=== PATIENT | female | born 1945 | race Caucasian/White ===

== ENCOUNTER 2018-08-28 14:19 | Inpatient (IN) | payer OTHER ==
[2018-08-28] VITALS (24 sets, daily range): BP systolic 102–211; BP diastolic 27–90
[~2018-08-28] VITALS: Ht 154.9 cm; Wt 69.6 kg
--- NOTE | ~2018-08-28 | HC ---
[facility] [place] [address] CONSULTATION Name: EBONI TARIQ Room #: 240-P ADM IN M.R.#: [id number] Admission: 08/28/18 Attend Phys: Vickey Montoya MD Discharge: Date of : 41 Report #: [id number] THIS REPORT FOR: //name// CC: Lu Montoya DATE OF SERVICE: 08/29/2018 INDICATION: Bradycardia and dyspnea. HISTORY OF PRESENT ILLNESS: This is a 73-year-old female transferred from [facility] for complaints of dyspnea and bradycardia. She resides in a longterm, is accompanied by her caregiver. Normally, she walks with a staff member for 20 minutes on a regular basis. Recently, she had to stop alf into her walk secondary to dyspnea and diaphoresis. Yesterday, she was out cleaning with other members. She was witnessed to be bradycardic and pale. They checked her blood pressure, which was elevated, but the heart rate was within normal limits. She was sent back to her home and she was still symptomatic. A repeat vitals revealed a low blood pressure and low heart rate. She was taken to the ER at [facility]. The EKG revealed sinus bradycardia with a heart rate of 37 beats per minute. She was subsequently transferred to [facility] for further evaluation. The patient denies any history of chest pains, fevers. PAST MEDICAL HISTORY: Mild mental retardation, schizoaffective disorder, hypertension, hypercholesterolemia, GERD, hypothyroidism, resides in a chcf since 1995. MEDICATIONS: Metoprolol 25 mg twice a day, lisinopril 20 mg daily, lovastatin. See MAR for full details. ALLERGIES: None. SOCIAL HISTORY: Denies tobacco use. FAMILY HISTORY: Unobtainable. PHYSICAL EXAMINATION: VITAL SIGNS: Blood pressure is 130/70, heart rate is 110 beats per minute. GENERAL APPEARANCE: An elderly appearing female, in no acute distress. HEENT: Atraumatic. Pupils equal and reactive to light. Oral mucosa moist. NECK: Supple. LUNGS: Clear to auscultation. CARDIAC: Regular rate and rhythm, S1, S2 positive. ABDOMEN: Soft, nontender. EXTREMITIES: No cyanosis, trace edema. [facility] [address] [place] [address] CONSULTATION Name: EBONI TARIQ Room #: [address] [place] [address] IN [facility].#: [id number] Admission: 08/28/18 Attend Phys: Vickey Montoya MD Discharge: Date of : 43 Report #: [id number] DIAGNOSTIC DATA: ECG from [place] reveals sinus bradycardia, right bundle branch block, left anterior hemiblock. LABORATORY VALUES: Sodium is 133, creatinine is 0.6. Troponin 0.12. TSH is 0.081. ASSESSMENT AND PLAN: 1. Bradycardia, unclear what the etiology is. It seems that she has been experiencing dyspnea and diaphoresis with mild levels of physical exertion. She is unable to voice her symptoms. The episode of bradycardia may have been related to a vasovagal event. Another consideration is the beta anna marie effect as well. However, she has been on this medication for quite some time. The plan is to hold the beta anna marie for now. 2. Dyspnea on exertion/diaphoresis. She will need a cardiac evaluation including echocardiogram and stress testing. 3. Thyroid disease. The TSH level is low, consistent with a hyperthyroid state. This would not account for the bradycardic episode. May need resumption of the beta anna marie. We will need to lower the dose of her thyroid supplement. 4. Hypertension. The blood pressure is stable, continue with ELIZABETH inhibitor. 5. Hypercholesterolemia, continue with statin therapy. <ELECTRONICALLY SIGNED> By: Reji Le MD 08/29/18 1518 0837 1211 Reji Le MD /nt
--- NOTE | ~2018-08-28 | 2DMMODE ---
[facility] [address] [place] [address] 2 D/M-MODE ECHOCARDIOGRAM Name: EBONI TARIQ Room #: 211-P ADM IN .R.#: [id number] Admission: 08/28/18 Attend Phys: Vickey Montoya MD Discharge: Date of : 41 Date of Service: 08/30/18 0955 Report #: [id number] THIS REPORT FOR: //name// APPROVED REPORT Study performed: 08/30/2018 08:21:54 EXAM: Comprehensive 2D, Doppler, and color-flow Echocardiogram Patient Location: In-Patient Room #: 211 Status: routine BSA: 1.69 HR: 73 bpm BP: 162/97 mmHg Other Information Study Quality: Adequate Indications Bradycardia Hypertension/HDD 2D Dimensions RVDd: 41.79 mm IVSd: 10.76 (7-11mm) LVOT Diam: 17.65 (18-24mm) LVDd: 34.42 mm PWd: 11.30 (7-11mm) Ascending Ao: 31.52 (22-36mm) LVDs: 21.14 (25-40mm) Aortic Root: 27.65 mm IVC: 7.00 mm Volumes Left Atrial Volume (Systole) Single Plane 4CH: 38.44 mL Single Plane 2CH: 27.56 mL LA ESV Index: 22.00 mL/m2 Aortic Valve AoV Peak Bob.: 1.39 m/s AO Peak Gr.: 7.69 mmHg LVOT Max P.75 mmHg LVOT Max V: 1.09 m/s MANISH Vmax: 1.92 cm2 AI Vmax: 5.86 m/s AI [place]: 4.04 m/s2 AI PHT: 421.34 ms Mitral Valve [facility] [address] [place] [address] 2 D/M-MODE ECHOCARDIOGRAM Name: CHANDNIEBONI J Room #: 211-[facility] IN ..#: [id number] Admission: 08/28/18 Attend Phys: Vickey Montoya MD Discharge: Date of : 41 Date of Service: 08/30/18 0955 Report #: [id number] E/A Ratio: 0.4 MV Decel. Time: 277.88 ms MV E Max Bob.: 0.51 m/s MV A Bob.: 1.20 m/s MV PHT: 80.59 ms IVRT: 155.71 ms Pulmonary Valve PV Peak Bob.: 0.83 m/s PV Peak Gr.: 2.78 mmHg Pulmonary Vein P Vein S: 0.52 m/s P Vein A: 0.29 m/s P Vein D: 0.43 m/s P Vein A Dur.: 103.8 msec P Vein S/D Ratio: 1.21 Tricuspid Valve TR Peak Bob.: 2.82 m/s RAP Estimate: 5.00 mmHg TR Peak Gr.: 31.87 mmHg PA Pressure: 37.00 mmHg Left Ventricle The left ventricle is normal size. There is normal LV segmental wall motion. There is normal left ventricular wall thickness. The left ventricular systolic function is normal. The left ventricular ejection fraction is within the normal range. LVEF is 60-65%. Mild diastolic dysfunction is present (impaired relaxation pattern). Right Ventricle Right ventricle is at the upper limits of normal. The right ventricular systolic function is normal. Atria The left atrium size is normal. The right atrium size is normal. Aortic Valve The aortic valve is sclerotic Mild-moderate aortic regurgitation. There is no aortic valvular stenosis. Mitral Valve Mild mitral annular calcification. Trace mitral regurgitation. No evidence of mitral valve stenosis. Tricuspid Valve The tricuspid valve is normal in structure. Mild tricuspid [facility] [address] [place] [address] 2 D/M-MODE ECHOCARDIOGRAM Name: EBONI TARIQ Room #: 211-P [facility] IN [facility]#: [id number] Admission: 08/28/18 Attend Phys: Vickey Montoya MD Discharge: Date of : 41 Date of Service: 08/30/18 0955 Report #: [id number] regurgitation. PAP is estimated at 37 mmHg. Pulmonic Valve The pulmonary valve is normal in structure. Trace pulmonic regurgitation. Great Vessels The aortic root is normal in size. IVC is normal in size and collapses >50% with inspiration. Pericardium There is no pericardial effusion. <Conclusion> The left ventricular systolic function is normal. There is normal LV segmental wall motion. LVEF is 60-65%. Mild diastolic dysfunction The aortic valve is sclerotic. Mild-moderate aortic regurgitation, no stenosis. Mild mitral annular calcification. Trace mitral regurgitation. Mild tricuspid regurgitation. Pulmonary artery pressure estimated at 37 mmHg. There is no pericardial effusion. <ELECTRONICALLY SIGNED> By: Srinivas Villa MD, FACC 08/30/18954 4 4 Srinivas Villa MD, FACC /INF
--- NOTE | ~2018-08-28 | EKG ---
[address] [address] ELECTROCARDIOGRAM REPORT Name: EBONI TARIQ Room #: 211-P ADM IN M.R.#: [id number] Admission: 08/28/18 Attend Phys: Vickey Montoya MD Discharge: Date of : 41 Report #: [id number] THIS REPORT FOR: //name// Test Date: 2018-08-29 Test Time: 13:06:32 Pat Name: EBONI TARIQ Department: Room: 211 Gender: F Cobbler Apprentice: DONNIE : 1945 Requested By: Vickey Montoya Order Number: [id number] MD: Srinivas Villa Measurements Intervals [place] Rate: 119 P: 232 UT: 107 QRS: -76 QRSD: 144 T: 68 QT: 454 QTc: 640 Interpretive Statements Sinus tachycardia RBBB and LAFB Left ventricular hypertrophy Compared to ECG 08/28/2018 17:39:54 heart rate has increased Electronically Signed On 08-30-2018 8:05:31 CONTRACT RECRUITER by Srinivas Villa [email or web address] <ELECTRONICALLY SIGNED> By: Srinivas Villa MD, [facility] 08/30/18 0805 1306 1306 Srinivas Villa MD, [facility] /EPI
--- NOTE | ~2018-08-28 | EKG ---
[address] [place] [address] ELECTROCARDIOGRAM REPORT Name: EBONI TARIQ Room #: 240-P ADM IN M.R.#: [id number] Admission: 08/28/18 Attend Phys: Vickey Montoya MD Discharge: Date of : 43 Report #: [id number] THIS REPORT FOR: //name// [facility] Test Date: 2018-08-28 Test Time: 17:39:54 Pat Name: EBONI TARIQ Department: Room: 240 P Gender: F Emergency Detail Driver: ANISH : 1945 Requested By: Vickey Montoya Order Number: [id number] MD: Reji Le Measurements Intervals [place] Rate: 85 P: 77 PA: 241 QRS: -74 QRSD: 160 T: 41 QT: 433 QTc: 515 Interpretive Statements Sinus rhythm Prolonged PA interval Biatrial enlargement RBBB and LAFB Left ventricular hypertrophy No previous ECG available for comparison Electronically Signed On 08-29-2018 10:20:42 DIALYSIS BIOMED TECHNICIAN by Reji Le [email or web address] <ELECTRONICALLY SIGNED> By: Reji Le MD 08/29/18 1020 1739 1739 Reji Le MD /JORGE
[2018-08-29] VITALS (8 sets, daily range): BP systolic 141–205; BP diastolic 53–110
[2018-08-29 04:54] LABS: CALCIUM 8.9 mg/dL (8.5-10.1); CREATININE 0.6 mg/dL (0.6-1.0); MAGNESIUM 1.8 mg/dL (1.8-2.4); POTASSIUM 3.7 mmol/L (3.5-5.1); TROPONIN-I 0.12 ng/mL (<0.06)
[2018-08-29] MEDS ORDERED: FOSAMAX 70 MG T70 MG PO (05:22)
[2018-08-29] MEDS ORDERED: SYNTHROID88 MCG PO (05:23)
[2018-08-29] MEDS ORDERED: FIBERCON625 M1 PO (05:24)
[2018-08-29] MEDS ORDERED: VITAMINC500 PO (05:25)
[2018-08-29] MEDS ORDERED: VITAMIN D2000 UNIT PO (05:30)
[2018-08-29] MEDS ORDERED: LEXAPRO 10 MG T10 M2 PO (05:31)
[2018-08-29] MEDS ORDERED: LISINOPRIL20 MG PO (05:32)
[2018-08-29] MEDS ORDERED: FERROUS GLUCON324 M2 PO (05:34)
[2018-08-29] MEDS ORDERED: PRENATAL PO (05:34)
[2018-08-29] MEDS ORDERED: TRILEPTAL300 MG PO (05:36)
[2018-08-29] MEDS ORDERED: VITAMIN E400 UNI3 PO (05:39)
[2018-08-29] MEDS ORDERED: LOPRESSOR25 PO (05:40)
[2018-08-29] MEDS ORDERED: PRESERVISION A1 EACH PO (05:42)
[2018-08-29] MEDS ORDERED: TUMS PO (05:44)
[2018-08-29] MEDS ORDERED: SODIUM CHLORIDE PO (05:46)
[2018-08-29] MEDS ORDERED: LOVASTATIN 20 M20 MG PO (05:47)
[2018-08-29] MEDS ORDERED: PRILOSEC 20 MG20 MG PO (05:48)
[2018-08-30 08:24] LABS: HEMATOCRIT 42.6 % (37.0-47.0); MCHC 32.9 g/dL (28.0-37.0); MCV 88.1 fL (80.0-100.0); RBC 4.84 mil/uL (4.20-5.00); RDW 13.6 % (10.5-14.5); WBC 5.7 thou/uL (4.0-11.0)
[2018-08-30 08:36] LABS: ALBUMIN 3.5 g/dL (3.4-5.0); CALCIUM 8.9 mg/dL (8.5-10.1); CREATININE 0.7 mg/dL (0.6-1.0); MAGNESIUM 1.9 mg/dL (1.8-2.4); POTASSIUM 4.1 mmol/L (3.5-5.1); TOTAL BILIRUBIN 0.4 mg/dL (<0.1-1.0); TOTAL PROTEIN 7.1 g/dL (6.4-8.2)
[2018-08-30 09:21] VITALS: BP 185/94
[2018-08-30 15:37] VITALS: BP 151/66
[2018-08-30 20:15] VITALS: BP 185/95
[2018-08-31] VITALS (7 sets, daily range): BP systolic 125–190; BP diastolic 63–101
[2018-08-31] MEDS ORDERED: BENAZEPRIL HCL20 MG PO (10:31)
[2018-08-31] MEDS ORDERED: AMLODIPINE BESY10 MG PO (10:31)
[2018-08-31] MEDS ORDERED: CARVEDILOL12.5 MG PO (15:34)
== END 2018-08-31 10:42 | disposition home or self-care (01) | DRG 305 ==
LOC: 2N → ICU 14:19 → 2N 15:28 → ICU 08-29 17:22 → 2N 08-29 17:23 → ENTRNSPT 08-31 16:18 → 2N 08-31 16:30
PROVIDERS: Internal Medicine
DX: I16.0 Hypertensive urgency (principal); R00.1 Bradycardia, unspecified; K21.9 Gastro-esophageal reflux disease without esophagitis; E03.9 Hypothyroidism, unspecified; I10 Essential (primary) hypertension; F32.9 Major depressive disorder, single episode, unspecified; E78.00 Pure hypercholesterolemia, unspecified; E05.90 Thyrotoxicosis, unspecified without thyrotoxic crisis or storm; F25.9 Schizoaffective disorder, unspecified; M85.80 Other specified disorders of bone density and structure, unspecified site; E55.9 Vitamin D deficiency, unspecified; E78.5 Hyperlipidemia, unspecified; E61.1 Iron deficiency; G25.0 Essential tremor; I08.3 Combined rheumatic disorders of mitral, aortic and tricuspid valves; Z79.899 Other long term (current) drug therapy
CPT/HCPCS: 10081; 10204; 10797

== ENCOUNTER 2018-10-23 14:50 | Inpatient (IN) | payer OTHER ==
[~2018-10-23] VITALS: Ht 154.9 cm; Wt 64.5 kg
[~2018-10-23 14:50] MED LIST: AMLODIPINE BESY10 MG PO; BENAZEPRIL HCL20 MG PO; CARVEDILOL12.5 MG PO; FERROUS GLUCON324 M2 PO; FIBERCON625 M1 PO; FOSAMAX 70 MG T70 MG PO; LEXAPRO 10 MG T10 M2 PO; LISINOPRIL20 MG PO; LOPRESSOR25 PO; LOVASTATIN 20 M20 MG PO; PRENATAL PO; PRESERVISION A1 EACH PO; PRILOSEC 20 MG20 MG PO; SODIUM CHLORIDE PO; SYNTHROID88 MCG PO; TRILEPTAL300 MG PO; TUMS PO; VITAMIN D2000 UNIT PO; VITAMIN E400 UNI3 PO; VITAMINC500 PO
[2018-10-23 16:05] VITALS: BP 145/62
[2018-10-23] MEDS ORDERED: NORVASC5 MG PO (16:19)
[2018-10-23] MEDS ORDERED: LISINOPRIL20 MG PO (16:29)
[2018-10-23 17:55] LABS: CHOLESTEROL 178 mg/dL (<200); HDL CHOLESTEROL 55 mg/dL (>40); LDL CHOLESTEROL 114 mg/dL (<100); TC:HDL 3.2 Ratio (Not establshd); TRIGLYCERIDE 48 mg/dL (<150); TROPONIN-I <0.06 ng/mL (<0.06); VLDL 10 mg/dL (<40)
[2018-10-23 17:57] LABS: SERUM ASSESSMENT Clear
[2018-10-23 18:16] LABS: TSH 0.036 uIU/mL (0.358-3.740)
[2018-10-23 19:41] VITALS: BP 153/64
--- NOTE | 2018-10-23 20:04 | NUR ---
PT ARRIVED FROM [facility] AT APPROX 1600. PT A&OX4, HAS COGNITIVE DELAY AND SCHIZOAFFECTIVE DISORDER. PT APPROPRIATE AND PLEASANT. VITALS SIGNS ON ARRIVAL WERE WITHIN NORMAL LIMITS WITH HEART RATE 50-60 BPM. CARDIOLOGY CONSULTED. PT HAS LEGAL GUARDIAN, LAMONT FIGUEROA. PT HAS CAREGIVER, ADRIÁN AT THE BEDSIDE. PT FROM [facility]. WILL CONT WITH POC.
--- NOTE | 2018-10-24 01:27 | NUR ---
THE PATIENT IS ORIENTED TO SELF AND PLACE. SHE DENIES PAIN AT THIS TIME. CAREGIVER IS PRESENT. ASSESSMENTS CHARTED. WILL CONTINUE TO MONITOR.
[2018-10-24 04:15] VITALS: BP 167/71
[2018-10-24 08:38] VITALS: BP 173/83
[2018-10-24 12:23] VITALS: BP 141/98
[2018-10-24 18:15] VITALS: BP 156/79
[2018-10-24 19:48] VITALS: BP 151/66
--- NOTE | 2018-10-24 20:49 | NUR ---
ASSUMED CARE OF PT AT 0700. PT A&OX4, HAS CAREGIVER AT THE BEDSIDE. HAS COGNITIVE DEVELOPMENT DELAY. PT WAS SINUS RHYTHM WITH 1D, BBB IN 70-80'S TODAY. PT SCHEDULED FOR LOOP MONITOR IN AM. WILL CONT WITH POC.
--- NOTE | 2018-10-24 22:10 | EKG ---
[address] [address] ELECTROCARDIOGRAM REPORT Name: EBONI TARIQ Room #: 215- ADM IN M.R.#: [id number] Admission: 10/23/18 Attend Phys: Vickey Montoya MD Discharge: Date of : 41 Report #: [id number] THIS REPORT FOR: //name// [facility] Test Date: 2018-10-23 Test Time: 17:21:16 Pat Name: EBONI TARIQ Department: Room: 215 Gender: F Purchasing Buyer: ANISH : 1945 Requested By: Annita Robles Order Number: [id number] MD: Enrique Wallace Measurements Intervals [place] Rate: 77 P: 66 WY: 230 QRS: -73 QRSD: 153 T: 13 QT: 473 QTc: 536 Interpretive Statements Sinus rhythm PAC Prolonged WY interval Probable left atrial enlargement RBBB and LAFB Left ventricular hypertrophy Compared to ECG 08/29/2018 13:06:32 First degree AV block now present Sinus tachycardia no longer present Electronically Signed On 10-24-2018 22:10:45 DOG CATCHER by Enrique Wallace [email or web address] <ELECTRONICALLY SIGNED> By: Enrique Wallace MD 10/24/18 2210 [id number] Enrique Wallace MD /EPI
--- NOTE | 2018-10-25 03:07 | NUR ---
ASSUMED CARE 1900. VSS. ASSESSMENT CHARTED. SR, 1DAV, BBB. PT HAS CAREGIVER AT BEDSIDE. PT DENIES ANY PAIN OR CONCERNS, SLEEPING WELL THROUGHOUT NIGHT. NPO AT MIDNIGHT, PLAN FOR LOOP PROCEDURE THIS AM. WILL CONTINUE TO MONITOR AND WITH POC.
[2018-10-25 03:55] VITALS: BP 167/76
[2018-10-25 08:02] VITALS: BP 160/112
[2018-10-25] MEDS ORDERED: NIFEDIPINE ER30 M1 PO (09:46)
[2018-10-25 10:51] VITALS: BP 160/112
--- NOTE | 2018-10-25 11:07 | NUR ---
PT. RESIDES AT [facility] AND IS BEING DISCHARGED BACK TO [facility]. FAXED DC ORDERS/SUMMARY AND SPOKE WITH ADRIÁN IN ADM. AND SHE RECEIVED ORDERS. SOMEONE FROM [facility] WITH TRANSPORT PT. BACK. WILL FAX DC ORDERS/SUMMARY TO PA'S OFFICE.
[2018-10-25 11:09] VITALS: BP 179/102
[2018-10-25 11:54] VITALS: BP 145/110
--- NOTE | 2018-10-25 14:40 | NUR ---
PATIENT TO DC TO HER [facility] TODAY. SP WITH HER GUARDIAN LAMONT WHO IS AGREEABLE TO DISCHARGE. FAXED DC ORDERS AND H/P TO [facility] FAX. NO FURTHER NEEDS
--- NOTE | 2018-10-25 14:44 | NUR ---
PT NO S/SX OF CARDIAC OR RESP DISTRESS. NO COMPLAINTS VOICED. PT HAD LOOP RECORDER INSERTED. PT DOING WELL. EDU PT ON DISHCARGE INSTRUCTIONS AND MEDICATIONS. CALLED DR. WOO ON [facility]. CAREGIVER AT BEDSIDE. DISCHARGED TO CAREGIVER. IV AND TELE REMOVED. ESCORTED OUT BY STAFF.
--- NOTE | 2018-10-27 12:23 | LINQ ---
[facility] [address] [place] [address] EZ-[id number] PROCEDURE REPORT Name: EBONI TARIQ Room #: 215-P [facility] IN ..#: [id number] Admission: 10/23/18 Attend Phys: Vickey Montoya MD Discharge: 10/25/18 Date of : 41 Date of Service: 10/27/18 1222 Report #: [id number] THIS REPORT FOR: //name// APPROVED REPORT Study performed: 10/25/2018 10:50:48 Patient Status: In-Patient Room #: Event Personnel: Manuel Cristobal Slot Operations Director, Susy Lacey RCIS Scrub Exam: [id number] Indications: history of palpitations and tachycardia on diagnosed with bradycardia that appears to be drug induced. Device is utilized to characterize further The patient is a 73 year-old female with a history of bradycardia and palpitations. Conscious Sedation Start time: 12.52 End Time: 1.03 Implanted Devices: CONFIRM-3500/SN# [id number] Procedure The patient underwent informed consent. We discussed the details of the procedure including the risks, which include, but not limited to bleeding, infection, vascular damage, cardiac perforation, and pneumothorax. She understood these risks and was willing to proceed. As such, she was brought to the EP/Cardiac Catheterization laboratory in a fasting and sedated state and prepped and draped in a The patient was brought to the EP/Cardiac Catheterization laboratory and the MID chest and shoulder were prepped and draped in a sterile manner. After instillation of the 1% lidocaine with epi a small incision was was made. Using both sharp and blunt dissection a pocket was developed and the device was introduced per standard protocol. The subcutaneous tissue was closed with 2 simple interrupted sutures and the skin was closed with 3-0 running subcuticular absorbable suture. 4 x 4 Steri-Strips OpSite were then utilized. Complications The patient tolerated the procedure well and there were no complications associated with the procedure. Findings [address] [address] [employer] PROCEDURE REPORT Name: EBONI TARIQ Room #: 215-P DIS IN .R.#: [id number] Admission: 10/23/18 Attend Phys: Vickey Montoya MD Discharge: 10/25/18 Date of : 41 Date of Service: 10/27/18 1222 Report #: [id number] Estimated Blood Loss: 0 Conclusion 1. Successful implantation of a [employer] implantable loop recorder with the above serial number Recommendations 1. Routine post implantation care 2. Outpatient monitoring per protocol <ELECTRONICALLY SIGNED> By: Manuel Cristobal MD 10/27/18 1222 1222 1222 Manuel Cristobal MD /AUDREY
== END 2018-10-25 14:58 | disposition home or self-care (01) | DRG 310 ==
LOC: 2N 14:50 → ENTRNSPT 10-25 14:34 → 2N 10-25 14:58
PROVIDERS: Hospitalist; ADMIT Internal Medicine
DX: R00.1 Bradycardia, unspecified (principal); K59.00 Constipation, unspecified; I10 Essential (primary) hypertension; F20.9 Schizophrenia, unspecified; F32.9 Major depressive disorder, single episode, unspecified; E78.00 Pure hypercholesterolemia, unspecified; E03.9 Hypothyroidism, unspecified; Z79.899 Other long term (current) drug therapy
CPT/HCPCS: 10078; 10081

== ENCOUNTER 2019-11-03 23:21 | Inpatient (IN) | payer OTHER ==
[~2019-11-03] VITALS: Ht 162.6 cm; Wt 61.9 kg
[~2019-11-03 23:21] MED LIST changes: +NIFEDIPINE ER30 M1 PO; +NORVASC5 MG PO
[2019-11-04 00:40] VITALS: BP 125/80
[2019-11-04] MEDS ORDERED: LISINOPRIL-HCT1 EAC2 PO (01:14)
[2019-11-04] MEDS ORDERED: ELIQUIS5 MG PO (01:15)
[2019-11-04] MEDS ORDERED: LOVASTATIN 20 M20 MG PO (01:16)
[2019-11-04] MEDS ORDERED: MYSOLINE50 MG PO (01:19)
[2019-11-04 04:45] VITALS: BP 139/53
--- NOTE | 2019-11-04 05:07 | NUR ---
PATIENT ADMITTED AROUND 0030 FROM [facility]. PT WAS IN 2D AVB, BRADYCARDIC, AND ASYMPTOMATIC. PT PLACED ON 3L OXYGEN UPON TRAVEL TO [facility] PT OXYGENATION AT 94% UPON ARRIVAL. PT DOES NOT C/O N/V/D OR CHEST PAINS. PT IS STEADY ON FEET WITH STBY ASSIST. PT HAS GUARDIAN AND RESIDES AT [facility] IN [place]. PT ADMISSION COMPLETED AND ASSESSMENT CHARTED. WILL CONTINUE TO MONITOR PT FOR SIGNS AND SYMPTOMS OF DISTRESS PER POC.
[2019-11-04 10:57] LABS: CALCIUM 8.9 mg/dL (8.5-10.1); CREATININE 0.7 mg/dL (0.6-1.0)
[2019-11-04 11:06] LABS: MAGNESIUM 2.1 mg/dL (1.8-2.4); TROPONIN-I <0.06 ng/mL (<0.06)
[2019-11-04 12:00] VITALS: BP 144/54
--- NOTE | 2019-11-04 13:19 | NUR ---
Case opened to follow for dc planning. Brush Operator visited with the pt and her RN caregiver Christopher at bedside. Christopher indicates she is the pt's RN CM from [facility] in [place], [place]. The lives in a home with several other ladies. She has lived there for 23 years and her legal guardian is the [facility] Public Admin Mary Tracey. The pt is a&ox3. She indicates that she is indep with gait and most adl's. The caregivers manage her medications and Christopher takes her to her dr centeno. Christopher will be her Thursday when the pt has surgery for pacemaker placement. Christopher to have the pt's legal guardianship paperwork faxed to the unit. They will provide transport at dc and need a copy of her dc summary and instructions. Christopher will need to be notified at dc and given report [phone] cell. Nursing and the attending notified to contact guardian for consents. Will follow along.
--- NOTE | 2019-11-04 14:27 | EKG ---
[place] [address] [email or web address] [place] [address] ELECTROCARDIOGRAM REPORT Name: TARIQEBONI J Room #: 201-P ADM IN M.R.#: [id number] Admission: 11/04/19 Attend Phys: Nelida Lopez MD Discharge: Date of : 41 Report #: [id number] THIS REPORT FOR: //name// [facility] Test Date: 2019-11-04 Test Time: 07:13:03 Pat Name: EBONI TARIQ Department: Room: 201 P Gender: F Candlemaker: Javi VITALE : 1945 Requested By: Elle Ghotra Order Number: [id number] MD: Enrique Wallace Measurements Intervals [place] Rate: 41 P: 73 MT: 239 QRS: -67 QRSD: 160 T: -12 QT: 599 QTc: 495 Interpretive Statements Sinus rhythm with Mobitz I second degree heart block. RBBB and LAFB Left ventricular hypertrophy Lateral infarct, age indeterminate Compared to ECG 10/23/2018 17:21:16 Myocardial infarct finding now present Electronically Signed On 11-04-2019 14:27:09 SHEET SEWER by Enrique Wallace [email or web address] <ELECTRONICALLY SIGNED> By: Enrique Wallace MD 11/04/19 1427 2 2 Enrique Wallace MD /EPI
--- NOTE | 2019-11-04 17:46 | NUR ---
ASSUMED CARE OF PT AT SHIFT CHANGE. ASSESSMENTS CHARTED. MEDS GIVEN PER DEC. VSS. PT ALERT TO SELF, PLACE AND SOMETIMES SITUATION. PT IS MENTALLY DISABLED, RAWLS OF STATE, HAS A 1:1 SITTER PROVIDED BY HER FACILITY. HR CONTINUES TO SUSTAIN IS 40S, ASYMPTOMATIC. PLAN FOR PACEMAKER ON THURSDAY. WILL CONTINUE TO MONITOR AND FOLLOW POC.
[2019-11-04 19:19] VITALS: BP 150/51
[2019-11-05 00:36] VITALS: BP 149/56
--- NOTE | 2019-11-05 00:47 | NUR ---
ASSESSMENTS CHARTED, MEDS GIVEN CHARTED. PT RESTING IN ROOM WITH PERSONAL SITTER FROM [facility]. UP WITH ASSIST TO BATHROOM. RECEIVING NORMAL SALINE. SINUS BECKI WITH 1ST AND 2ND DEGREE BLOCKS ON TELEMETRY, NONSYMPTOMATIC. PLAN OF CARE IS TO HAVE PACE MAKER INSERTED ON THURSDAY. ATROPINE AT BEDSIDE INCASE PATIENT BECOMES SYMPTOMATIC.
[2019-11-05 03:49] LABS: HEMOGLOBIN 12.6 gm/dL (12.0-15.0); MCH 29.6 pg (26.0-34.0); MCHC 33.1 g/dL (28.0-37.0); MCV 89.3 fL (80.0-100.0); RBC 4.25 mil/uL (4.20-5.00); RDW 13.6 % (10.5-14.5); WBC 4.5 thou/uL (4.0-11.0)
[2019-11-05 04:04] LABS: CALCIUM 8.7 mg/dL (8.5-10.1); CREATININE 0.7 mg/dL (0.6-1.0); POTASSIUM 3.7 mmol/L (3.5-5.1)
[2019-11-05 04:25] VITALS: BP 140/71
[2019-11-05 07:38] VITALS: BP 154/76
[2019-11-05 11:15] VITALS: BP 144/70
[2019-11-05 18:50] VITALS: BP 149/42
[2019-11-05 19:15] VITALS: BP 141/90
--- NOTE | 2019-11-05 19:52 | NUR ---
ASSUMED CARE OF PATIENT AT 0700. PATIENT'S CAREGIVER, MELINDA, IS AT THE BEDSIDE. ASSESSMENT AND TELE STRIP PRINTED AND PLACED IN CHART. PATIENT DENIES ANY PAIN. PATIENT IS RESTING COMFORTABLY IN BED. PATIENT AMBULATED A STAND BY ASSIST TO THE BATHROOM HOLDING ONTO HER IV POLE AND IS STEADY. PATIENT TO CONTINUE WITH POC.
--- NOTE | 2019-11-06 05:29 | NUR ---
ASSESSMENTS CHARTED, MEDS GIVEN CHARTED. RESTING IN ROOM WITH CREWMAN ARMOURED PERSONNEL CARRIER M113 AT BEDSIDE DURING SHIFT. PATIENT PLAN OF CARE IS TO RECEIVE PACEMAKER ON THURSDAY.
[2019-11-06 06:16] VITALS: BP 184/79
[2019-11-06 12:58] VITALS: BP 148/64
[2019-11-06 16:00] VITALS: BP 149/74
--- NOTE | 2019-11-06 19:42 | NUR ---
ASSUMED CARE OF PATIENT AT 0700. PATIENT'S CAREGIVER, MELINDA, AT BEDSIDE FOR ENTIRETY OF DAY. PATIENT WAS MUCH MORE TIRED TODAY THAN YESTERDAY, NAPPING MORE FREQUENTLY. HER HEART RATE AVERAGED IN THE 40'S, DROPPING INTO THE 30'S MULTIPLE TIMES. PATIENT WAS ASYMPTOMATIC EVERY TIME. PATIENT'S FLUIDS WERE D/C, PATIENT ATE AND DRANK WELL TODAY WITH THE EXCEPTION OF DINNER AND ONLY ATE 25%, NOTING A LACK OF APPETITE. PATIENT ANTICIPATING PACEMAKER PLACEMENT TOMORROW. CONSENT WITH DPOA ON CHART WHICH WAS VERBALLY GIVEN OVER THE PHONE AND CONFIRMED BY MARIA LUISA COOL AND MYSELF. PATIENT TO CONTINUE WITH POC.
[2019-11-06 20:15] VITALS: BP 178/92
[2019-11-06 23:30] VITALS: BP 168/81
[2019-11-07] VITALS (9 sets, daily range): BP systolic 113–190; BP diastolic 45–92
--- NOTE | 2019-11-07 07:52 | NUR ---
ASSESSMENTS CHARTED. MEDS GIVEN CHARTED. PATIENT RESTING DURING SHIFT. VERY PLEASANT. PATIENT DID NOT EAT ANY DINNER SO ATE A SNACK PRIOR TO MIDNIGHT. NPO SINCE MIDNIGHT IN PREP FOR PACEMAKER PLACEMENT IN AM. IV FLUSHES FINE. PATIENT'S BLOOD PRESSURE WAS HIGH THIS MORNING FERNY AGARWAL GAVE ORDER FOR ONETIME HYDRALAZINE. GIVEN THIS AM. PATIENT WAS GIVEN A BED BATH WITH CLORAHEXADINE WIPES. MONITOR MOVED TO HER BACK. CAREGIVER AT BEDSIDE 18/05 FROM HER HALFWAY. SHE IS A RAWLS OF THE [facility], HER DPOA GAVE VERBAL CONSENT OVER THE PHONE YESTERDAY DURING DAY SHIFT. FORM IN CHART.
--- NOTE | 2019-11-07 18:14 | NUR ---
PT ALERT AND ORIENTED. VSS. HAD PACEMAKER PLACEMENT THIS AM. PACEMAKER INCISION C/D/I. NO HEMATOMA NOTED. PACEMAKER POST OP INSTRUCTIONS GIVEN TO PT. PT VERBERLISED UNDERSTANDING. WINDSHIELD TECHNICIAN AT THE BEDSIDE. WILL CONTINUE TO MONITOR.
[2019-11-08 00:45] VITALS: BP 155/76
[2019-11-08 04:45] VITALS: BP 181/86
--- NOTE | 2019-11-08 05:25 | NUR ---
PATIENT ALERT.BEDREST.LEFT ARM IMMOBILIZER ON.TYLENOL GIVEN FOR PAIN.CAREGIVER AT BEDSIDE.MONITOR SHOWS OCCASIONAL PACER SPIKES.POC CONTINUED.
[2019-11-08 05:45] VITALS: BP 163/75
[2019-11-08 07:20] VITALS: BP 146/73
[2019-11-08] MEDS ORDERED: SYNTHROID75 MCG PO (09:08)
[2019-11-08 11:30] VITALS: BP 153/57
--- NOTE | 2019-11-08 13:35 | NUR ---
PT DISCHARGING BACK TO [facility] HOME FAXED DC SUMMARY TO PT'S PA (LAMONT FIGUEROA) RECEIVED CONFIRMATION AND LEFT VOICEMAIL THAT PT IS DISHCARGING TODAY.
--- NOTE | 2019-11-08 14:15 | NUR ---
PT CARE ASSUMED APPROX 0700. ASSESSMENT CHARTED. PT DENIES PAIN AND SOA. VSS. UP WITH SBA. APPROVED FOR DISCHARGE. DR COLUNGA SPOKE TO CHILO WHO REPORTED THAT HE WOULD JUST SEE PT IN CLINIC AND THAT SHE DIDN'T HAVE TO WAIT FOR HIM TO ROUND TO DISCHARGE PT. REPORT GIVEN TO BEDSIDE RN. IV OUT, TELE OFF. BEDSIDE NURSE DENIES QUESTIONS OR CONCERNS REGARDING POST HOSPITAL CARES. POST PPM INSTRUCTIONS GIVEN. PT TO BE ESCORTED OUT TIMELY.
[2019-11-08] MEDS ORDERED: KEFLEX500 M1 PO (15:03)
--- NOTE | 2019-11-18 12:57 | CATHLAB ---
[facility] [address] [place] [address] INVASIVE PROCEDURE REPORT Name: EBONI TARIQ Room #: 201-P [facility]#: [id number] Admission: 11/04/19 Attend Phys: Kendra Mason Discharge: 11/08/19 Date of : 41 Report #: [id number] THIS REPORT FOR: //name// APPROVED REPORT Study performed: 11/07/2019 11:24:52 Patient Status: In-Patient Room #: Event Personnel: Manuel Cristobal Pharmacy Informatics Specialist, Mayo Ambriz RN, Susy Lacey RTR, Sanya Vyas Roberta Monitor Exam: Insertion of Dual Chamber Permanent Pacemaker, supervision of conscious sedation Indications: BHAVIN 4-year-old female with AV block, paroxysmal atrial fibrillation, , Sick Sinus Syndrome/Tachy Masood Syndrome The patient is a 74 year-old female with a history of Atrial Fibrillation, Syncope, Palpitations. Conscious Sedation Start time: 1204 End Time: 1310 Versed 3 mg Implanted Devices: [employer] ASSURITY PPM. DEVICE SERIAL #[id number], RA LEAD #S/N [id number], LV LEAD #S/N [id number]. Procedure The patient underwent informed consent. We discussed the details of the procedure including the risks, which include, but not limited to bleeding, infection, vascular damage, cardiac perforation, and pneumothorax. her D by mouth a.m. patient understood these risks and was willing to proceed. As such, she was brought to the EP/Cardiac Catheterization laboratory in a fasting and sedated state and prepped and draped in a sterile fashion, received IV antibiotics prior to initiation of the procedure and a venogram was performed showing patency of the left axillary vein. The patient underwent conscious sedation, with no related complications. The patient was brought to the EP/Cardiac Catheterization laboratory and the left chest and shoulder were prepped and draped in a sterile manner. During this case, Fluoroscopy and visipaque 10cc were used for imaging. The left subclavian region was infiltrated with 2% Lidocaine subcutaneous anesthesia. A transverse incision was made in the left [address] [address] INVASIVE PROCEDURE REPORT Name: CHANDNIEBONI J Room #: 201[facility]P [facility] ..#: [id number] Admission: 11/04/19 Attend Phys: Kendra Mason Discharge: 11/08/19 Date of : 41 Report #: [id number] upper chest cavity. The subcutaneous pocket was formed via blunt dissection. Percutaneous venous access was achieved and an introducer sheath was inserted into the left Subclavian vein. Sheaths were positions using the modified Seldinger technique Through the introducer sheaths the atrial and ventricular lead wires were positioned in the right atrial appendage and right ventricular apex respectively. Utilizing fluoroscopic guidance, the atrial and ventricular lead wires were advanced over the wires and positioned in the right atria and right ventricle respectively. Capturing and sensing thresholds were verified. Electrode Parameters P Wave: 3.0 R Wave: 8.6 Atrial Threshold: 0.5 Ventricular Threshold: .75 Atrial Resistance: 490 Ventricular Resistance: 0 Dual Chamber The atrial and ventricular leads were then secured using 2-0 nylon absorbable sutures. The subcutaneous pocket was irrigated with ancef antibiotic solution.The atrial and ventricular leads were attached to the appropriate receptacles on the pulse generator and set screws firmly tightened to insure adequate contact and stability. The lead and pulse generator were placed into the subcutaneous pocket. Sharp and sponge counts were confirmed to be correct. At this time the pocket was closed subcutaneously with a 2O nonabsorbable running locking suture in 2 layers and the skin was closed with a 3-0 Vicryl in a subcuticular. The operative site was dressed in sterile fashion with Steri-Strips 4 x 4 OpSite and the patient was transferred to the floor in stable condition. Complications The patient tolerated the procedure well and there were no complications associated with the procedure. Findings Specimens Removed: No Conclusion 1. Successful implantation of a dual-chamber [employer] pacemaker [facility] [address] [place] [address] INVASIVE PROCEDURE REPORT Name: TARIQEBONI Room #: 201-P [facility] M.R.#: [id number] Admission: 11/04/19 Attend Phys: Kendra Mason Discharge: 11/08/19 Date of : 41 Report #: [id number] Recommendations 1. Proceed per standard post pacemaker insertion protocol <ELECTRONICALLY SIGNED> By: Manuel Cristobal MD 11/18/19 1256 125 125 Manuel Cristobal MD /INF
== END 2019-11-08 15:00 | disposition home or self-care (01) | DRG 243 ==
LOC: 2N 23:21 → ENTRNSPT 11-08 14:22 → EDTRNSPTSTS 11-08 14:24 → 2N 11-08 15:00
PROVIDERS: Nurse Practitioner Family; ADMIT Hospitalist
PROC: 02H63JZ Insertion of Pacemaker Lead into Right Atrium, Percutaneous Approach (ICD-10-PCS; principal; 2019-11-07)
PROC: 0JH606Z Insertion of Pacemaker, Dual Chamber into Chest Subcutaneous Tissue and Fascia, Open Approach (ICD-10-PCS; principal; 2019-11-07)
PROC: 02HK3JZ Insertion of Pacemaker Lead into Right Ventricle, Percutaneous Approach (ICD-10-PCS; principal; 2019-11-07)
DX: I44.1 Atrioventricular block, second degree (principal); E87.1 Hypo-osmolality and hyponatremia; I48.0 Paroxysmal atrial fibrillation; I10 Essential (primary) hypertension; E78.5 Hyperlipidemia, unspecified; K21.9 Gastro-esophageal reflux disease without esophagitis; E03.9 Hypothyroidism, unspecified; F20.9 Schizophrenia, unspecified; F32.9 Major depressive disorder, single episode, unspecified; F39 Unspecified mood [affective] disorder; M85.80 Other specified disorders of bone density and structure, unspecified site; E78.00 Pure hypercholesterolemia, unspecified; I49.8 Other specified cardiac arrhythmias; F79 Unspecified intellectual disabilities; M81.0 Age-related osteoporosis without current pathological fracture; D64.9 Anemia, unspecified; G47.00 Insomnia, unspecified; E87.8 Other disorders of electrolyte and fluid balance, not elsewhere classified; I49.5 Sick sinus syndrome; Z95.818 Presence of other cardiac implants and grafts; Z79.01 Long term (current) use of anticoagulants; Z79.899 Other long term (current) drug therapy
CPT/HCPCS: 10081

== ENCOUNTER → 2019-12-15 | Outpatient (CLI) | payer OTHER ==
[~2019-12-15] MED LIST changes: +ELIQUIS5 MG PO; +KEFLEX500 M1 PO; +LISINOPRIL-HCT1 EAC2 PO; +MYSOLINE50 MG PO; +SYNTHROID75 MCG PO
== END ==
LOC: SJCVC 08:53
DX: I49.5 Sick sinus syndrome (principal); I48.0 Paroxysmal atrial fibrillation; I10 Essential (primary) hypertension; E78.5 Hyperlipidemia, unspecified; Z79.899 Other long term (current) drug therapy

== ENCOUNTER → 2020-05-30 | Outpatient (CLI) | payer OTHER | LOC: SJCVC 09:39 | PROVIDERS: ATTEND Internal Medicine | DX: I45.2 Bifascicular block (principal); I48.0 Paroxysmal atrial fibrillation; I49.5 Sick sinus syndrome; I10 Essential (primary) hypertension; E78.5 Hyperlipidemia, unspecified; Z95.0 Presence of cardiac pacemaker; Z79.899 Other long term (current) drug therapy ==

== ENCOUNTER → 2021-12-23 | Outpatient (CLI) | payer OTHER | LOC: SJCVC 14:43 | PROVIDERS: ATTEND Internal Medicine | DX: R94.31 Abnormal electrocardiogram [ECG] [EKG] (principal); I10 Essential (primary) hypertension; E78.5 Hyperlipidemia, unspecified; I48.0 Paroxysmal atrial fibrillation; Z95.0 Presence of cardiac pacemaker; Z79.899 Other long term (current) drug therapy ==